=== PATIENT | male | born 1945 ===

== ENCOUNTER 2022-08-28 19:10 | Emergency (ER) | payer OTHER ==
[~2022-08-28] VITALS: Ht 182.9 cm; Wt 86.2 kg
[~2022-08-28 19:10] MED LIST: ALBU90OI INH; ASCO500 PO; BELVIQ10 MG; CIPR500 PO; CLIN1TS; Depo-Testos200 MG/ML IM; FENO48 PO; FERR325 PO; FLUO.05TO TOP; INSUASPI; INSULANI; INSULANPEN; LEVEMIR FL100 UNIT/1 SC; METF500 PO; METF500C PO; METR500 PO; MULVITMIND PO; Pseudoephedrine30 MG PO; Ranitidine HCl150 M1 PO; SILD50TA PO; SULTRIDS PO; WARF7.5; XARELTO10 MG PO
[2022-08-28 20:02] LABS: Red Blood Cell Count 5.62 M/mm3 (4.30-5.90)
[2022-08-28 20:18] LABS: BASOPHILS PERCENT AUTO 1 % (0-2); EOSINOPHILS ABSOLUTE AUTO 0.42 K/mm3 (0.00-0.68); EOSINOPHILS PERCENT AUTO 5 % (0-6); Hematocrit 43.3 % (37.0-53.0); Hemoglobin 13.7 g/dL (13.5-17.5); IMMATURE GRAN ABSOLUTE AUTO 0.04 K/mm3 (0.00-0.10); IMMATURE GRAN PERCENT AUTO 1 % (0-1); LYMPHOCYTES ABSOLUTE AUTO 1.87 K/mm3 (0.84-5.20); LYMPHOCYTES PERCENT AUTO 21 % (21-46); MONOCYTES ABSOLUTE AUTO 0.91 K/mm3 (0.16-1.47); MONOCYTES PERCENT AUTO 10 % (4-13); Mean Corpuscular HGB 24.4 pg (26.0-34.0); Mean Corpuscular HGB Conc 31.6 g/dL (31.5-36.5); Mean Corpuscular Volume 77 fL (80-100); NEUTROPHILS ABSOLUTE AUTO 5.41 K/mm3 (1.96-9.15); NEUTROPHILS PERCENT AUTO 62 % (41-73); RDW Coefficient Variation 19.2 % (11.7-14.2); RDW Standard Deviation 53.8 fL (35.1-46.3); White Blood Cell Count 8.75 K/mm3 (4.00-11.30)
[2022-08-28 20:27] LABS: Albumin, Blood 3.9 g/dL (3.4-5.0); Albumin/Globulin Ratio 0.9 (0.8-1.8); Bilirubin, Total 0.2 mg/dL (0.1-1.0); Calcium, Blood 9.1 mg/dL (8.5-10.1); Creatinine, Blood 0.92 mg/dL (0.60-1.20); Globulin, Blood 4.2 g/dL (2.2-4.0); Potassium, Blood 3.9 mmol/L (3.5-5.5); Total Protein, Blood 8.1 g/dL (6.4-8.2)
[2022-08-28 20:39] LABS: Platelet Count 529 K/mm3 (150-400)
== END 2022-08-29 00:56 | disposition home or self-care (01) ==
LOC: ER 19:10
PROVIDERS: Student in an Organized Health Care Education/Training Program
DX: R42 Dizziness and giddiness (principal); Z88.0 Allergy status to penicillin; Z88.1 Allergy status to other antibiotic agents; Z88.5 Allergy status to narcotic agent; Z88.8 Allergy status to other drugs, medicaments and biological substances; Z79.899 Other long term (current) drug therapy; Z79.84 Long term (current) use of oral hypoglycemic drugs; Z79.4 Long term (current) use of insulin; E11.9 Type 2 diabetes mellitus without complications; I10 Essential (primary) hypertension; G47.33 Obstructive sleep apnea (adult) (pediatric); F43.10 Post-traumatic stress disorder, unspecified; E78.5 Hyperlipidemia, unspecified; Z87.891 Personal history of nicotine dependence
CPT/HCPCS: 36415; 71260; 80053; 84484; 85025; 99284-25; Q9967

== ENCOUNTER 2025-01-06 16:00 | Inpatient (IN) | payer MEDICARE, OTHER ==
[~2025-01-06] VITALS: Ht 180.3 cm; Wt 75.5 kg
[~2025-01-06 16:00] MED LIST changes: +ASPI81CH PO; +Atarax10 MG PO; +B-121000 MC4 PO; +DEPO-TESTO200 MG/1 M IM; +ERGO400 PO; +FERROUS GLUCON324 M7 PO; +GABA300 PO; +GLYXAMBI 25 MG1 EACH PO; +HYDR1TAB94 PO; +Ketoconazole120 ML TOP; +LANTUS SOL100 UNIT/1 SC; +LEVSOD100 PO; +Loratadine10 MG PO; +MULVITA PO; +NALOXONE H0.4 MG/1 M IM; +OMEPRAZOLE MAGN20 MG PO; +OZEMPIC2 MG/0.75 SC; +SAVAYSA15 MG PO
[2025-01-06 17:38] LABS: BASOPHILS ABSOLUTE AUTO 0.10 K/mm3 (0.00-0.23); BASOPHILS PERCENT AUTO 1 % (0-2); EOSINOPHILS ABSOLUTE AUTO 0.37 K/mm3 (0.00-0.68); EOSINOPHILS PERCENT AUTO 4 % (0-6); Hematocrit 37.2 % (37.0-53.0); Hemoglobin 11.1 g/dL (13.5-17.5); IMMATURE GRAN ABSOLUTE AUTO 0.03 K/mm3 (0.00-0.10); IMMATURE GRAN PERCENT AUTO 0 % (0-1); LYMPHOCYTES ABSOLUTE AUTO 1.91 K/mm3 (0.84-5.20); LYMPHOCYTES PERCENT AUTO 20 % (21-46); MONOCYTES ABSOLUTE AUTO 0.96 K/mm3 (0.16-1.47); MONOCYTES PERCENT AUTO 10 % (4-13); Mean Corpuscular HGB Conc 29.8 g/dL (31.5-36.5); Mean Corpuscular Volume 70 fL (80-100); NEUTROPHILS ABSOLUTE AUTO 6.31 K/mm3 (1.96-9.15); NEUTROPHILS PERCENT AUTO 65 % (41-73); NRBC ABSOLUTE 0.00 K/mm3 (0.00-0.02); NRBC Auto 0.0 /100 WBC (0.0-0.2); Platelet Count 344 K/mm3 (150-400); RDW Coefficient Variation 22.0 % (11.7-14.2); RDW Standard Deviation 53.6 fL (35.1-46.3)
[2025-01-06 17:51] LABS: Alanine Aminotransfer (ALT/SGP 20.0 U/L (12-78); Albumin, Blood 3.7 g/dL (3.4-5.0); Albumin/Globulin Ratio 0.8 (0.8-1.8); Anion Gap 10.0 mmol/L (3-11); Aspartate Aminotrans (AST/SGOT 20.0 U/L (12-37); Bilirubin, Total 0.4 mg/dL (0.1-1.0); Blood Urea Nitrogen 8.0 mg/dL (8-24); CO2, Blood 19.0 mmol/L (21-32); Calcium, Blood 9.2 mg/dL (8.5-10.1); Chloride, Blood 109.0 mmol/L (98-108); Creatinine, Blood 0.94 mg/dL (0.60-1.20); Globulin, Blood 4.4 g/dL (2.2-4.0); Glucose, Blood 190.0 mg/dL (70-99); Potassium, Blood 3.4 mmol/L (3.5-5.5); Sodium, Blood 135.0 mmol/L (136-145); Total Protein, Blood 8.1 g/dL (6.4-8.2)
[2025-01-06 20:45] LABS: Prothrombin Time Results 17.2 Sec (9.7-11.5)
[2025-01-06] MEDS ORDERED: NS 1,000 ML IV SCH (20:45)
[2025-01-06 20:48] LABS: Anti-Xa UFH, PHA Monitoring >1.50 IU/mL
[2025-01-06] MEDS ORDERED: Dose Adjust by Pharmacy XX STA (20:54)
[2025-01-06] MEDS ORDERED: Heparin Sodium 5000 Units/ML 1ML MDV IV ONE (20:55)
[2025-01-06] MEDS ORDERED: Heparin Sodium,Porcine/0.5 NS 500 ML IV SCH (20:55)
[2025-01-06] MEDS ORDERED: Insulin Glargine-Yfgn 100 Unit/mL 3 ML SYR SC SCH (21:00)
[2025-01-06] MEDS ORDERED: TRAM50 PO (21:16)
[2025-01-06] MEDS ORDERED: SAVAYSA60 MG PO (21:21)
[2025-01-06] MEDS ORDERED: THERA-D2000 UNIT PO (21:23)
[2025-01-06] MEDS ORDERED: SYNJARDY XR 251 EAC1 PO (21:24)
[2025-01-06 22:46] VITALS: BP 99/66
--- NOTE | 2025-01-06 23:03 | NUR ---
ADMIT NOTE HANDOFF RECEIVED FROM CLIENT SERVICE COORDINATORSOLITARIO SOLOMON. PT ARRIVED TO FLOOR VIA GURNEY. HEPARIN GTT INFUSING. HEPARIN VERIFIED WITH SOLITARIO GILLIAM. PT ORIENTED TO UNIT. CALL BUTTON WITHIN REACH. PERSONAL POSSESSIONS WITH PT.
[2025-01-07] VITALS (10 sets, daily range): BP systolic 104–136; BP diastolic 56–77
[2025-01-07] MEDS ORDERED: Insulin Human Lispro 100 Units/ML 3ML Syringe SC SCH
--- NOTE | 2025-01-07 02:47 | NUR ---
CALLED HOSPITALIST PT REQUESTS MORE PAIN MEDICINE THE PAIN HAS RETURNED. NEW ORDERS IN EMAR
--- NOTE | 2025-01-07 04:03 | NUR ---
SHIFT SUMMARY ADMITTED THIS SHIFT FOR DVT OF RLE. DNR CODE. PLAN IS FOR IR CONSULT TO EVALUATE DVT. PT IS ON RA, A&O X3-4, ADA DIET. HEPARIN GTT IS INFUSING. IV FLUID IS INFUSING. VA PATIENT. PATIENT HAS BEEN NPO SINCE MIDNIGHT. PHARMACY IS MANAGING HEPARIN. Q6 CBG'S - LOW SS. LABILE MOODS. HE REFUSES OR DELAYS CARE AT TIMES. WE ARE MONITORING LACTIC ACID LABS WHICH ARE ELEVATED. PAIN MEDICATION GIVEN THIS SHIFT.
[2025-01-07 05:35] LABS: Hematocrit 33.8 % (37.0-53.0); Hemoglobin 10.0 g/dL (13.5-17.5); Mean Corpuscular HGB Conc 29.6 g/dL (31.5-36.5); Mean Corpuscular Volume 70 fL (80-100); NRBC ABSOLUTE 0.00 K/mm3 (0.00-0.02); NRBC Auto 0.0 /100 WBC (0.0-0.2); Platelet Count 300 K/mm3 (150-400); RDW Coefficient Variation 22.1 % (11.7-14.2); RDW Standard Deviation 54.2 fL (35.1-46.3)
[2025-01-07] MEDS ORDERED: Dose Adjust by Pharmacy XX STA ×3 (06:03→15:14)
[2025-01-07 06:07] LABS: Anion Gap 9.0 mmol/L (3-11); Blood Urea Nitrogen 8.0 mg/dL (8-24); CO2, Blood 21.0 mmol/L (21-32); Calcium, Blood 8.3 mg/dL (8.5-10.1); Chloride, Blood 112.0 mmol/L (98-108); Creatinine, Blood 0.88 mg/dL (0.60-1.20); Glucose, Blood 102.0 mg/dL (70-99); Potassium, Blood 3.7 mmol/L (3.5-5.5); Sodium, Blood 138.0 mmol/L (136-145)
[2025-01-07] MEDS ORDERED: HYDROmorphone HCl/Pf 1MG SYR IV PRN ×2 (07:40→11:10)
[2025-01-07] MEDS ORDERED: NS 1,000 ML IV ONE ×3 (13:06→13:36)
[2025-01-07] MEDS ORDERED: Heparin Sodium 1000 Units/ML 10ML MDV ONE ×2 (13:06→13:36)
[2025-01-07] MEDS ORDERED: Midazolam HCl 1MG / ML 2ML Vial ONE (13:35)
[2025-01-07] MEDS ORDERED: FentaNYL Citrate 50 MCG/ML 2 ML Injection ONE (13:36)
--- NOTE | 2025-01-07 13:47 | NUR ---
PATIENT TAKEN BY BED TO PROCEDURE AT 1330. NO SIGNS OR SYMPTOMS OF DISTRESS WHEN HE LEFT THE UNIT.
--- NOTE | 2025-01-07 13:48 | NUR ---
PHARMACY NOTIFIED OF HEPARIN DRIP BEING TURNED OFF
[2025-01-07] MEDS ORDERED: Albuterol HFA200 ACT/6.7 GM INH INH PRN (13:50)
[2025-01-07] MEDS ORDERED: NS 500 ML IV ONE (14:39)
--- NOTE | 2025-01-07 15:04 | NUR ---
PT DISCHARGED TO FACILITY VIA W/C. FAMILY WITH BELONGINGS.
--- NOTE | 2025-01-07 17:08 | NUR ---
R SITE SATURATED THROUGH DRESSING. CALL MADE TO BALDO PUENTES AND ADVISED THAT VASCULAR CLOSURE DEVICE CAN BE TIGHTENED AND DRESSING CAN BE CHANGED. THIS WAS COMPLETED. ALSO WAS ADVISED THAT THE VASCULAR CLOSURE DEVICES ARE REMOVED WITHIN THE FIRST 3 HOURS AND PATIENT'S REMAIN BEDREST DURING THAT TIME. [place] [facility] [place]
--- NOTE | 2025-01-07 17:11 | NUR ---
SHIFT SUMMARY: A&OX4 THROUGHOUT SHIFT. COOPERATIVE WITH CARE, YET OCCASIONALLY FRUSTRATED WITH STAFF. PT UP TO BATHROOM WITH A SBA. PROCEDURE WAS COMPLETED TODAY TO REMOVE BLOOD CLOTS FROM BOTH LEGS. DRESSINGS CHANGED AND C/D/I. POSTOPERATIVELY, THE PATIENT HAS REMAINED BEDREST RECOMMENDED BY IR STAFF. MEDICATED PER EMAR. LYING IN BED AT THIS TIME. BED IN THE LOWEST POSITION. CALL LT NEAR.
[2025-01-08 03:40] VITALS: BP 101/55
[2025-01-08 04:44] LABS: BASOPHILS ABSOLUTE AUTO 0.08 K/mm3 (0.00-0.23); BASOPHILS PERCENT AUTO 1 % (0-2); EOSINOPHILS ABSOLUTE AUTO 0.47 K/mm3 (0.00-0.68); EOSINOPHILS PERCENT AUTO 8 % (0-6); Hematocrit 32.0 % (37.0-53.0); Hemoglobin 9.3 g/dL (13.5-17.5); IMMATURE GRAN ABSOLUTE AUTO 0.02 K/mm3 (0.00-0.10); IMMATURE GRAN PERCENT AUTO 0 % (0-1); LYMPHOCYTES ABSOLUTE AUTO 1.33 K/mm3 (0.84-5.20); LYMPHOCYTES PERCENT AUTO 22 % (21-46); MONOCYTES ABSOLUTE AUTO 0.83 K/mm3 (0.16-1.47); MONOCYTES PERCENT AUTO 14 % (4-13); Mean Corpuscular HGB Conc 29.1 g/dL (31.5-36.5); Mean Corpuscular Volume 72 fL (80-100); NEUTROPHILS ABSOLUTE AUTO 3.43 K/mm3 (1.96-9.15); NEUTROPHILS PERCENT AUTO 56 % (41-73); NRBC ABSOLUTE 0.00 K/mm3 (0.00-0.02); NRBC Auto 0.0 /100 WBC (0.0-0.2); Platelet Count 284 K/mm3 (150-400); RDW Coefficient Variation 22.1 % (11.7-14.2); RDW Standard Deviation 56.1 fL (35.1-46.3)
[2025-01-08 05:11] LABS: Anion Gap 10.0 mmol/L (3-11); Blood Urea Nitrogen 7.0 mg/dL (8-24); CO2, Blood 19.0 mmol/L (21-32); Calcium, Blood 8.0 mg/dL (8.5-10.1); Chloride, Blood 114.0 mmol/L (98-108); Creatinine, Blood 0.82 mg/dL (0.60-1.20); Glucose, Blood 96.0 mg/dL (70-99); Potassium, Blood 3.5 mmol/L (3.5-5.5); Sodium, Blood 139.0 mmol/L (136-145)
--- NOTE | 2025-01-08 06:03 | NUR ---
SHIFT SUMMARY: Pt is admitted for DVT and is a DNR. is alert and able to make needs known. ADLs have been SBA. Pain has been managed with PRN medications. Wounds to back of knees have dressings that are CDI.
[2025-01-08 07:30] VITALS: BP 104/64
[2025-01-08] MEDS ORDERED: Insulin Human Lispro 100 Units/ML 3ML Syringe SC SCH (07:30)
[2025-01-08] MEDS ORDERED: Multivitamins 1 Tab PO SCH (09:00)
[2025-01-08] MEDS ORDERED: Cholecalciferol 1000 Unit Tablet (=25MCG) PO SCH (09:00)
--- NOTE | 2025-01-08 09:15 | NUR ---
FLOWSTATIS DEVICES REMOVED FROM BILATERAL POSTERIOR KNEES. DRESSED WITH GAUZE AND TEGADERM. NO ACTIVE BLEEDING FROM SITES. SWELLING OR BRUISING.
[2025-01-08 11:13] VITALS: BP 101/79
--- NOTE | 2025-01-08 15:15 | NUR ---
DISCHARGE NOTE: IV'S REMOVED, PATIENT GOT HIMSELF DRESSING AND COLLECTED HIS BELONGINGS. WENT OVER DISCHARGE WITH PATIENT AND PATIENT WAS WHEELED DOWN BY DENTAL SERVICES DIRECTOR. NO SIGNS OR SYMPTOMS OF DISTRESS WITH DISCHARGE.
== END 2025-01-08 15:28 | disposition home health service (06) | DRG 271 ==
LOC: ER 16:00 → MEDS 20:42
PROVIDERS: Emergency Medicine; Nurse Practitioner Acute Care; Student in an Organized Health Care Education/Training Program; ADMIT Student in an Organized Health Care Education/Training Program
PROC: 04CJ3ZZ Extirpation of Matter from Left External Iliac Artery, Percutaneous Approach (ICD-10-PCS; principal; 2025-01-07)
PROC: 04CH3ZZ Extirpation of Matter from Right External Iliac Artery, Percutaneous Approach (ICD-10-PCS; 2025-01-07)
PROC: 04CK3ZZ Extirpation of Matter from Right Femoral Artery, Percutaneous Approach (ICD-10-PCS; 2025-01-07)
PROC: 05CY3ZZ Extirpation of Matter from Upper Vein, Percutaneous Approach (ICD-10-PCS; 2025-01-07)
PROC: B5191ZZ Fluoroscopy of Inferior Vena Cava using Low Osmolar Contrast (ICD-10-PCS; 2025-01-07)
PROC: B51 Imaging, Veins, Fluoroscopy (ICD-10-PCS; 2025-01-07)
DX: I82.411 Acute embolism and thrombosis of right femoral vein (principal); E87.21 Acute metabolic acidosis; K50.90 Crohn's disease, unspecified, without complications; I82.421 Acute embolism and thrombosis of right iliac vein; I82.451 Acute embolism and thrombosis of right peroneal vein; E11.9 Type 2 diabetes mellitus without complications; I10 Essential (primary) hypertension; E78.5 Hyperlipidemia, unspecified; Z66 Do not resuscitate; K74.60 Unspecified cirrhosis of liver; G47.33 Obstructive sleep apnea (adult) (pediatric); G89.4 Chronic pain syndrome; I82.811 Embolism and thrombosis of superficial veins of right lower extremity; E03.9 Hypothyroidism, unspecified; D64.9 Anemia, unspecified; F43.12 Post-traumatic stress disorder, chronic; S52.572D Other intraarticular fracture of lower end of left radius, subsequent encounter for closed fracture with routine healing; S22.32XD Fracture of one rib, left side, subsequent encounter for fracture with routine healing; W19.XXXD Unspecified fall, subsequent encounter; Z96.641 Presence of right artificial hip joint; Z86.718 Personal history of other venous thrombosis and embolism; Z86.711 Personal history of pulmonary embolism; Z88.0 Allergy status to penicillin; Z88.1 Allergy status to other antibiotic agents; Z88.5 Allergy status to narcotic agent; Z88.8 Allergy status to other drugs, medicaments and biological substances; Z79.82 Long term (current) use of aspirin; Z79.01 Long term (current) use of anticoagulants; Z79.85 Long-term (current) use of injectable non-insulin antidiabetic drugs; Z79.4 Long term (current) use of insulin; Z79.890 Hormone replacement therapy; Z79.84 Long term (current) use of oral hypoglycemic drugs; Z90.49 Acquired absence of other specified parts of digestive tract; Z87.891 Personal history of nicotine dependence
CPT/HCPCS: 36415; 71260; 76937; 80048; 80053; 82010; 82947; 83605; 83690; 84484; 85025; 85027; 85347; 85520; 85610; 85730; 93005; 93010; 93971; 94760; 99152; 99153; 99285-25; A9270; C1757; C1769; C1887; C1894; J1171; J1644; J1815; J2250; J3010; J7030; J7040; Q9967